=== PATIENT | male | born 1970 | race Caucasian/White ===

== ENCOUNTER 2024-02-23 10:19 | Emergency (ER) | payer OTHER ==
[~2024-02-23] VITALS: Ht 193 cm; Wt 122.5 kg
[2024-02-23 11:09] LABS: BASOPHILS ABSOLUTE AUTO 0.03 K/mm3 (0.00-0.23); BASOPHILS PERCENT AUTO 0 % (0-2); EOSINOPHILS ABSOLUTE AUTO 0.11 K/mm3 (0.00-0.68); EOSINOPHILS PERCENT AUTO 1 % (0-6); Hematocrit 53.8 % (37.0-53.0); Hemoglobin 18.3 g/dL (13.5-17.5); IMMATURE GRAN ABSOLUTE AUTO 0.02 K/mm3 (0.00-0.10); IMMATURE GRAN PERCENT AUTO 0 % (0-1); LYMPHOCYTES ABSOLUTE AUTO 2.03 K/mm3 (0.84-5.20); LYMPHOCYTES PERCENT AUTO 22 % (21-46); MONOCYTES ABSOLUTE AUTO 0.36 K/mm3 (0.16-1.47); MONOCYTES PERCENT AUTO 4 % (4-13); Mean Corpuscular HGB 30.7 pg (26.0-34.0); Mean Corpuscular Volume 90 fL (80-100); Mean Platelet Volume 10.3 fL (9.1-12.4); NEUTROPHILS ABSOLUTE AUTO 6.57 K/mm3 (1.96-9.15); NEUTROPHILS PERCENT AUTO 72 % (41-73); Platelet Count 249 K/mm3 (150-400); RDW Coefficient Variation 12.4 % (11.7-14.2); RDW Standard Deviation 41.1 fL (35.1-46.3); Red Blood Cell Count 5.97 M/mm3 (4.30-5.90); White Blood Cell Count 9.12 K/mm3 (4.00-11.30)
[2024-02-23 11:30] LABS: Albumin/Globulin Ratio 1.3 (0.8-1.8); Bilirubin, Total 0.6 mg/dL (0.1-1.0); Bun/Creatinine Ratio 21.3 (12.0-20.0); Calcium, Blood 8.9 mg/dL (8.5-10.1); Creatinine, Blood 0.89 mg/dL (0.60-1.20); Potassium, Blood 4.3 mmol/L (3.5-5.5)
[2024-02-23] MEDS ORDERED: NS 1,000 ML IV SCH (14:55)
[2024-02-23] MEDS ORDERED: Diltiazem HCl 5 MG / ML 5ML Vial IV ONE (14:55)
[2024-02-23] MEDS ORDERED: Toprol Xl25 MG PO (16:12)
[2024-02-24] MEDS ORDERED: Prinivil10 MG (10:52)
[2024-02-24] MEDS ORDERED: Prinivil10 MG PO (10:53)
== END 2024-02-23 16:30 | disposition home or self-care (01) ==
LOC: ER 10:19
PROVIDERS: Physician Assistant
DX: I48.91 Unspecified atrial fibrillation (principal); I10 Essential (primary) hypertension
CPT/HCPCS: 71046; 80053; 84443; 84484; 85025; 93005; 93010; 96361; 96374; 99285-25; J7030

== ENCOUNTER 2024-02-24 10:40 | Inpatient (IN) | payer OTHER ==
[~2024-02-24] VITALS: Ht 193 cm; Wt 122.7 kg
[2024-02-24] VITALS (9 sets, daily range): BP systolic 90–129; BP diastolic 51–92
[~2024-02-24 10:40] MED LIST: Propofol 10mg/ml 20 ml Vial (Procedural) IV ONE; Toprol Xl25 MG PO
[2024-02-24] MEDS ORDERED: Diltiazem HCl 5 MG / ML 5ML Vial IV ONE ×2 (10:50→12:25)
[2024-02-24] MEDS ORDERED: Prinivil10 MG (10:52)
[2024-02-24] MEDS ORDERED: Prinivil10 MG PO (10:53)
[2024-02-24] MEDS ORDERED: dilTIAZem HCL 125 MG in Dextrose 5% 100 ML IV SCH ×2 (13:25→15:00)
[2024-02-24] MEDS ORDERED: Metoprolol Tartrate 1 MG/ML 5 ML VIAL IV ONE (13:30)
[2024-02-24] MEDS ORDERED: Ondansetron HCl 2 MG / ML 2ML Vial IV PRN (16:20)
[2024-02-24] MEDS ORDERED: Acetaminophen 325 MG TABLET PO PRN (16:25)
[2024-02-24 16:44] LABS: Hematocrit 49.7 % (37.0-53.0); Mean Corpuscular HGB 31.3 pg (26.0-34.0); Mean Corpuscular HGB Conc 34.2 g/dL (31.5-36.5); Mean Corpuscular Volume 91 fL (80-100); Mean Platelet Volume 11.2 fL (9.1-12.4); Platelet Count 200 K/mm3 (150-400); RDW Coefficient Variation 12.7 % (11.7-14.2); Red Blood Cell Count 5.44 M/mm3 (4.30-5.90)
[2024-02-24 16:53] LABS: Albumin, Blood 3.7 g/dL (3.4-5.0); Albumin/Globulin Ratio 1.4 (0.8-1.8); Bun/Creatinine Ratio 24.8 (12.0-20.0); Calcium, Blood 8.7 mg/dL (8.5-10.1); Creatinine, Blood 0.81 mg/dL (0.60-1.20); Globulin, Blood 2.7 g/dL (2.2-4.0); Potassium, Blood 4.2 mmol/L (3.5-5.5); Total Protein, Blood 6.4 g/dL (6.4-8.2)
[2024-02-24] MEDS ORDERED: Metoprolol Tartrate 50 MG Tab PO SCH (17:00)
[2024-02-24] MEDS ORDERED: Nicotine 21 MG PATCH TOP SCH (17:00)
--- NOTE | 2024-02-24 19:02 | NUR ---
PT ARRIVED TO U 14 AT 1850 REPORT RECIEVED FROM MARYELLEN COLLINS. HIS VITAL SIGNS ARE STABLE, TEMP OF 100.3. I GAVE 650MG TYLENOL FOR FEVER. PT STATES HE HAS MILD 1-2/10 CHEST PRESSURE. HE IS ON RA. WHEN I SAT HIM UP IN BED TO GIVE HIM MEDS HE GOT DIZZY. PT IS A&OX4, AND KNOWS TO CALL FOR ASSISTANCE AND NOT GET OOB WITHOUT HELP. LAB CAME AND DAVID A 2ND TROP, RESULTS PENDING. I WENT OVER FIRE IGNITION RISK AND PT STATED HE DID NOT HAVE ANY LIGHTERS. HE IS WEARING A NICOTINE PATCH AT THIS TIME. REPORT WAS GIVEN TO BRITTA COLLINS.
[2024-02-25] VITALS (20 sets, daily range): BP systolic 102–143; BP diastolic 65–102
[2024-02-25 01:09] LABS: Hematocrit 49.8 % (37.0-53.0); Hemoglobin 16.8 g/dL (13.5-17.5); Mean Corpuscular HGB 30.7 pg (26.0-34.0); Mean Corpuscular HGB Conc 33.7 g/dL (31.5-36.5); Mean Corpuscular Volume 91 fL (80-100); Mean Platelet Volume 10.2 fL (9.1-12.4); Platelet Count 173 K/mm3 (150-400); RDW Coefficient Variation 12.6 % (11.7-14.2); RDW Standard Deviation 41.6 fL (35.1-46.3); Red Blood Cell Count 5.48 M/mm3 (4.30-5.90)
[2024-02-25 01:25] LABS: Bun/Creatinine Ratio 24.8 (12.0-20.0); Calcium, Blood 8.7 mg/dL (8.5-10.1); Creatinine, Blood 0.93 mg/dL (0.60-1.20); Potassium, Blood 4.1 mmol/L (3.5-5.5)
--- NOTE | 2024-02-25 06:22 | NUR ---
1915 Assumed care of pt, alex report completed. Shift plan of care reviewed with patient and all questions answered. 2100 Cardizem gtt started for HR 120-140s. Please see Critical Care Flowsheet for full titration details. 0030 Good results with Cardizem gtt, currently at 10mg/hr. HR much more stable and appears to be in a 2:1 atrial flutter. Rate controlled. Trops have remained negative this shift and pt has repeatedly denied chest pain. Please see full assessment for additional details. No further complaints or concerns at this time, will continue to monitor.
[2024-02-25] MEDS ORDERED: Potassium Phosphate Dibasic 30 MM in Dextrose 5% 500 ML IV STA (08:05)
[2024-02-25] MEDS ORDERED: Aspirin 81 MG Chew PO SCH (09:00)
[2024-02-25] MEDS ORDERED: Enoxaparin 40 MG/0.4 ML SYR SC SCH (09:00)
[2024-02-25] MEDS ORDERED: dilTIAZem HCL 120 MG CAP.CD PO SCH (11:30)
--- NOTE | 2024-02-25 11:56 | NUR ---
PT WAS TITRAITED OFF OF HIS DILTIAZEM GTT THIS MORNING AROUND 0830. ON TELE HE HAS BEEN AFLUTTER 70'S-80'S. WHEN THE PT GOT UP TO THE CHAIR FOR LUNCH AND UP TO THE BAHROOM HIS HEART RATE DID START TACHING UP TO 120'S. THE PT DENIES ANY ANGINA/CHEST PRESSURE. HE HAS NOT HAD ANY DIZZINESS OR SOB TODAY. DR. ARVIZU STOPPED BY AND STARTED THE PT ON CARDIZEM CD 120MG DAILY IN ADDITION TO THE 50MG METOPROLOL XL. WE ARE WAITING ON ECHO RESULTS AT THIS TIME TO SEE IF THE PT COULD POSSIBLY D/C TODAY PER DR. ARVIZU. SEE NOTES FOR ANY UPDATES.
--- NOTE | 2024-02-25 12:20 | NUR ---
WHILE UP IN THE CHAIR THE PT'S HEART STARTED TO SUSTAIN IN THE 130'S. HE STARTED HAVING COLD SWEATS. I HAD HIM GET BACK TO BED AND HIS COLD SWEATS STOPPED AND HR CAME BACK DOWN TO 90'S-110'S. OTHER VITALS REMAINED STABLE.
--- NOTE | 2024-02-25 15:56 | NUR ---
DR. ARVIZU CALLED AND WANTS ME TO GIVE THE PT'S 2100 DOSE OF METOPROLOL NOW INSTEAD OF TONIGHT. SHE WOULD LIKE ME TO WAIT A LITTLE AND THEN WALK THE PT AROUND THE UNIT TO SEE HOW HIS HEART IS DOING. SHE WOULD LIKE A CALL. PLAN IS THAT THE PT WILL RESUME METOPROLOL AND CARDIZEM TOGETHER IN THE MORNING.
[2024-02-25] MEDS ORDERED: Metoprolol Succinate 50 MG TABCR PO SCH (16:00)
--- NOTE | 2024-02-25 17:10 | NUR ---
SHIFT SUMMARY PT REMAINS A&OX4, CALLING APPROPRIATELY, AND MAKING HIS NEEDS KNOWN. THE PT HAS BEEN OFF CARDIZEM SINCE ABOUT 0830ISH THIS MORNING. WITH ANY ACTIVITY THE PT WAS TACHING UP W/ HR >130. HE SUSTAINS TACHY WHEN HE IS NOT LAYING DOWN IN BED. WHEN THE PTS HR IS TACHY HE SAYS HE FEELS WEIRD AND HAS COLD SWEATS . IN ASSESSMENT IT DID SHOW THE PT TO HAVE COLD SWEATS W/ TACHYCARDIA, LUH MENDOZA MADE AWARE.. DR. ARVIZU STARTED HIM ON CARDIZEM AND METOPROLOL EXTENDED RELEASE. I WALKED THE PT THIS EVENING ABOUT 45 MINUTES AFTER HE RECEIVED THE METOPROLOL EXTENDED RELEASE AND HE STARTED TO FEEL DIZZY ABOUT 100 FEET. HIS HEART RATE WAS SUSTAINING IN THE [address] ARVIZU CALLED AT THIS TIME AND SAID WE ARE GOING TO KEEP THE PT OVERNIGHT. HR COMING BACK DOWN AFTER GETTING BACK TO THE ROOM AND RESTING. SEE NOTES FOR ANY UPDATES.
[2024-02-25] MEDS ORDERED: dilTIAZem HCL 30 MG TAB PO PRN (18:30)
[2024-02-26] VITALS (7 sets, daily range): BP systolic 111–140; BP diastolic 81–104
--- NOTE | 2024-02-26 06:08 | NUR ---
1915 Assumed care of pt, bedside report completed. Shift plan of care reviewed [facility] pt, all questions answered. 2029 Pt dangle at edge of bed to eat HS snack. Immediately HR to 140s with reports of mild dizziness. Dizziness is less than when ambulating on shift prior per pt report. Pt requests to remain at edge of bed to eat, pt aware of how to keep safe and if symptoms advance to swing legs back into bed. Pt agrees with plan of care. Gave PRN dose of Cardizem for parameters of HR >110. Will continue to monitor. HR below 100 rest of shift due to staying in bed. Will report to day shift RN results of attempted activity. Pt somewhat discourage about percieved lack of progress. Therapautic listening employed, along with goal setting and expectation review. Please see full assessment for additional details. No further complaints or concerns at this time, will continue to monitor.
--- NOTE | 2024-02-26 07:55 | NUR ---
UPDATE/AM ASSESSMENT: PT ALERT AND ORIENTED, ABLE TO FOLLOW COMMANDS AND MAKE NEEDS KNOWN. BP STABLE. HR AFLUTTER 140'S, PT SYMPTOMATIC. PT DIAPHORETIC/NAUSEOUS. COMPLAINING 4/10 CHEST PAIN. VSS. AM MEDS GIVEN. EKG BEING OBTAINED AT THIS TIME.
[2024-02-26] MEDS ORDERED: dilTIAZem HCL 60 MG CAP.SR PO ONE (16:00)
--- NOTE | 2024-02-26 16:08 | NUR ---
SHIFT SUMMARY: PT ALERT AND ORIENTED X4, ABLE TO FOLLOW COMMANDS AND MAKE NEEDS KNOWN. STRENGTH EQUAL BILATERALLY. BP STABLE. HR AFIB 90'S-140'S THIS SHIFT. MD UPDATED. DILT RESTARTED AT 10MG/HR, RESPONDED WELL. CURRENTLY @5MG/HR. CURRENTLY DENIES CP/PRESSURE. PULSES STRONG AND EQUAL THROUGHOUT. AFEBRILE. SPO2 >98% ON ROOM AIR. RESPIRATIONS EVEN AND UNLABORED AT REST. PULSES STRONG AND EQUAL THROUGHOUT. ABD SOFT, NON TENDER, BOWEL SOUNDS +. PT IND IN ROOM. BED IN LOW, CALL LIGHT IN REACH, WILL REPORT TO ONCOMING RN.
--- NOTE | 2024-02-26 22:40 | NUR ---
ASSUMPTION OF CARE THIS RN ASSUMED CARE OF PT AT 1900, REPORT FROM WEI COLLINS. PT RESTING IN BED AT TIME OF REPORT. VSS. PT DENIES CP/PRESSURE, SOB, DIZZINESS, PALPIATIONS AT REST. PT DOES REPORT THAT WITH ACTIVITY HE IS DIZZY, FEELS PALPITATIONS, AND "GETS COLD SWEATS". PT DENIES ANY SYMPTOMS AT THIS TIME; AFIB/FLUTTER WITH HR IN 70'S WITH CARDIZEM GTT INFUSING AT 5 MLS/HR. BP STABLE. PT ENCOURAGED TO USE URINAL AT BEDSIDE AND TO CALL WHEN NEEDING TO GET UP. PT A&O X4, CALM AND COOPERATIVE WITH CARE. PT ABLE TO REPOSITION INDEPENDENTLY. PT DENIES ISSUES OR CONCERNS GI/. CALL LIGHT IN REACH. PT DENIES OTHER NEEDS AT THIS TIME
[2024-02-27] VITALS (16 sets, daily range): BP systolic 102–133; BP diastolic 74–99
[2024-02-27 05:20] LABS: BASOPHILS ABSOLUTE AUTO 0.03 K/mm3 (0.00-0.23); BASOPHILS PERCENT AUTO 0 % (0-2); EOSINOPHILS ABSOLUTE AUTO 0.19 K/mm3 (0.00-0.68); EOSINOPHILS PERCENT AUTO 2 % (0-6); Hematocrit 52.3 % (37.0-53.0); Hemoglobin 17.8 g/dL (13.5-17.5); IMMATURE GRAN ABSOLUTE AUTO 0.02 K/mm3 (0.00-0.10); IMMATURE GRAN PERCENT AUTO 0 % (0-1); LYMPHOCYTES ABSOLUTE AUTO 2.19 K/mm3 (0.84-5.20); LYMPHOCYTES PERCENT AUTO 27 % (21-46); MONOCYTES ABSOLUTE AUTO 0.42 K/mm3 (0.16-1.47); MONOCYTES PERCENT AUTO 5 % (4-13); Mean Corpuscular HGB 30.6 pg (26.0-34.0); Mean Corpuscular Volume 90 fL (80-100); Mean Platelet Volume 10.1 fL (9.1-12.4); NEUTROPHILS ABSOLUTE AUTO 5.32 K/mm3 (1.96-9.15); NEUTROPHILS PERCENT AUTO 65 % (41-73); Platelet Count 191 K/mm3 (150-400); RDW Coefficient Variation 12.5 % (11.7-14.2); Red Blood Cell Count 5.82 M/mm3 (4.30-5.90); White Blood Cell Count 8.17 K/mm3 (4.00-11.30)
--- NOTE | 2024-02-27 06:05 | NUR ---
SHIFT SUMMARY PT REMAINS A&O X4. NO ACUTE EVENTS OVERNIGHT. PT DENIES ANY EVENTS OF CP/PRESSURE, SOB, DIZZINESS, OR "COLD SWEATS. VSS; SBP 102 - 120'S, AFIB/AFLUTTER WITH RATE IN 70 - 80S, INCREASES TO 100 - 1 TEENS WITH ACTIVITY. PT RESTED MOST OF THE SHIFT. REMAINS ON RA, SPO2 92 - 97%. SLEEP OXIMETRY COMPLETED. PT CONTINUES TO USE URINAL INDEPENDENTLY. CARDIZEM INFUSING AT 5MLS/HR. CALL LIGHT IN REACH, WILL UPDATE ONCOMING RN
[2024-02-27 06:15] LABS: Albumin, Blood 3.5 g/dL (3.4-5.0); Anion Gap 9 mmol/L (3-11); Blood Urea Nitrogen 23 mg/dL (8-24); Bun/Creatinine Ratio 28.2 (12.0-20.0); CO2, Blood 25 mmol/L (21-32); Calcium, Blood 8.8 mg/dL (8.5-10.1); Chloride, Blood 110 mmol/L (98-108); Creatinine, Blood 0.82 mg/dL (0.60-1.20); Glomerular Filtration Rate 106 (60-); Glucose, Blood 109 mg/dL (70-99); Magnesium, Blood 2.2 mg/dL (1.6-2.4); Phosphorus, Blood 2.9 mg/dL (2.5-4.9); Potassium, Blood 4.2 mmol/L (3.5-5.5); Sodium, Blood 140 mmol/L (136-145)
[2024-02-27] MEDS ORDERED: dilTIAZem HCL 240 MG CAP.CD PO SCH ×2 (10:00→11:00)
[2024-02-27] MEDS ORDERED: Diltiazem HCl 180 MG Cap.CD PO SCH (10:00)
--- NOTE | 2024-02-27 11:24 | NUR ---
AM SUMMARY PATIENT SAT UP TO EAT BREAKFAST, REPORTED FEELING REALLY DIZZY SITTING UP AND CHEST PRESSURE BUT NO PAIN WHEN HE ELEVATES. HRR DID NOT CHANGE WHEN CHANGE OF POSITION OCCURED. NO REPORT OF CP, SWEATING, PAIN ANYWHERE ELSE. RAY WAS AT BESIDE AROUND 0948 AND HAS VERBALLY CHANGED CARDIZEM PO TO HIGHER DOSE FROM 180 TO 240, NURSE SUNDAY GAVE. WE D/C'D CARDIZEM GTT AND GAVE ORAL CARDIZEM AN HOUR AFTER STOPPING GTT PER SARAH VERBAL REQUEST. DOCTOR STATED TO PT THAT HE WANTS TO CONTROL PULSE, MAKE CHANGES TO MEDS AND ORDER A STRESS TEST THAT WILL HAPPEN TODAY. HE IS CURRENTLY NPO FOR STRESS TEST. SBP IS AROUND 120-130 AND DBP IS 80-90'S. SPO2 >95 ON RA. CALL LIGHT IN REACH, WILL CONTINUE TO MONITOR.
[2024-02-27] MEDS ORDERED: Regadenoson 0.4 MG/5 ML SYRINGE ONE (13:04)
[2024-02-27] MEDS ORDERED: dilTIAZem HCL 120 MG CAP.CD PO ONE (15:30)
[2024-02-27] MEDS ORDERED: Metoprolol Tartrate 1 MG/ML 5 ML VIAL IV PRN (16:35)
[2024-02-27] MEDS ORDERED: LORazepam 2 MG/ML 1ML Injection IV ONE (16:35)
[2024-02-27] MEDS ORDERED: Metoprolol Tartrate 1 MG/ML 5 ML VIAL IV ONE (16:35)
--- NOTE | 2024-02-27 18:25 | NUR ---
SHIFT SUMMARY AT 1350 PT HAD STRESS TEST AND IMAGING DONE. PT REPORTED REALLY BAD HEADACHE SINCE HAVING STRESS TEST, MANAGED WITH CAFFEINE AND TYLENOL. 1500 PTS HRR ELEVATED TO >140'S W IMELDA AND DR. NICOLE ORDERED 5MG IV PUSH X3 5 MINUTES APART, INTERVENTION WAS UNSUCCESSFUL WITH RATE CONTROL. DR. BELL ORDERED ATIVAN TO GO WITH IT. PT REPORTED CHEST PRESSURE, EKG WAS ORDERED AND EVALUATED BY DR BELL. PT IS STILL REPORTING FEELING DIZZY WHEN SITTING UP IN BED AND DIAPHORETIC. RAY WAS AT BEDSIDE AROUND 1800 TO DISCUSS CONSIDERATION OF CARDIOVERSION TOMORROW IF HE DOES NOT CONVERT TO NSR ON HIS OWN THROUGHOUT NIGHT. SIGNATURE FOR CONSENT WAS OBTAINED BY PT AND WITNESSED BY NURSE SAWYER. DR. BELL WILL BE ADJUSTING MEDICATIONS AND WANTED US TO WATCH FOR THAT. SPECIFICALLY THE CARDIZEM AND METOPROLOL WILL BE CHANGED. WE ARE ALSO AWAITING STRESS TEST RESULTS, DR. BELL WOULD LIKE THE PT TO BE PUT ON ANTICOAGULANT PRIOR TO CONVERSION BUT WANTS THE RESULTS FIRST. BP WITHIN NORMAL LIMITS, HRR IS HIGH OF >140. CALL LIGHT IN REACH, WILL REPORT TO ONCOMING RN.
[2024-02-27 20:32] LABS: Anti-Xa UFH, PHA Monitoring <0.10 IU/mL; International Normalized Ratio 0.97; Prothrombin Time Results 10.4 Sec (9.7-11.5)
[2024-02-27] MEDS ORDERED: Dose Adjust by Pharmacy XX STA (20:41)
[2024-02-27] MEDS ORDERED: Heparin Sodium,Porcine/0.5 NS 500 ML IV SCH (20:45)
[2024-02-27] MEDS ORDERED: Heparin Sodium 5000 Units/ML 1ML MDV IV ONE (20:45)
[2024-02-27] MEDS ORDERED: Metoprolol Succinate 50 MG TABCR PO SCH ×2 (21:00)
--- NOTE | 2024-02-27 22:05 | NUR ---
ASSUMPTION OF CARE THIS RN ASSUMED CARE OF PT AT 1900, REPORT FROM SUNDAY RN AND IP BODY DESIGNER. PT LYING FLAT IN BED, FRIEND AT BEDSIDE VISITING. PT DENIES CP/PRESSURE, DIZZINESS, SOB, SWEATING, N/V AT REST. PT DID REPORT DURING THE DAY, HE DID HAVE A FEW SYMPTOMATIC EPISODES BUT SINCE HAS NOT. VSS; AFLUTTER WITH RATE IN 80 - 100'S, REMAINS ON RA. PT DENIES ISSUES GI/. PT IS USING URINAL INDEPENDENTLY. PT HAS NOT AMBULATED THIS SHIFT YET. HEPARIN STARTED PER PHARMACY. CALL LIGHT IN REACH AND PT ABLE TO MAKE NEEDS KNOWN.
[2024-02-28] VITALS (16 sets, daily range): BP systolic 110–148; BP diastolic 76–110
[2024-02-28 04:29] LABS: Hemoglobin 17.8 g/dL (13.5-17.5); Mean Platelet Volume 10.2 fL (9.1-12.4); Platelet Count 196 K/mm3 (150-400)
[2024-02-28] MEDS ORDERED: Clarify Drug Order XX ONE (05:10)
--- NOTE | 2024-02-28 06:16 | NUR ---
SHIFT SUMMARY PT REMAINS A&O X4. NO ACUTE EVENTS OVERNIGHT, NO CHANGES FROM ASSUMPTION OF CARE NOTE. VSS; SBP 128 - 148, AFLUTTER WITH RATE IN 80 - 100'S, AFEBRILE, ON RA WITH SPO2 GREATER THAN 95%. PT DID NOT GET UP FROM BED, HOWEVER HE DID ELEVATE HOB. PT DID NOT REPORT ANY EVENTS OF CP/PRESSURE, DIZZINESS OR SWEATING THIS SHIFT. NO REPORTED TELE EVENTS. PT USING URINAL INDEPENDENTLY IN BED. HEPARIN PER EMAR. PT NPO SINCE MIDNIGHT FOR PROCEDURE TODAY. CALL LIGHT IN REACH, WILL UPDATE ONCOMING RN
--- NOTE | 2024-02-28 10:09 | NUR ---
AM SUMMARY PT REPORTS THAT HE SLEPT WELL. HE HAD COMPLAINTS OF DIZZINESS STILL UPON SITTING UPRIGHT IN BED DURING HEAD TO TOE. HE DOESN'T FEEL CHEST PRESSURE, PAIN OR SOB BUT HE ALSO STATED THAT HE HAS NOT MOVED AROUND MUCH THIS MORNING. PT WILL BE GOING FOR 2ND PART TO STRESS TEST THIS MORNING AT 1030 AND THEN GETTING SET UP WITH [facility] FOR CARDIOVERSION WITH DR. BELL. PT IS REMAINING NPO UNTIL ALL PROCEDURES HAVE BEEN COMPLETED TODAY. VITAL SIGNS ARE WITHIN NORMAL LIMITS AND RATE HAS BEEN CONTROLLED BUT THE PT IS STILL IN AFLUTTER. PT PREFERS TO BE LAYING MORE FLAT IN BED BECAUSE ANY UPRIGHT SITTING MAKES HIM FEEL DIZZY. CALL LIGHT IS WITHIN REACH, WILL CONTINUE TO MONITOR.
[2024-02-28] MEDS ORDERED: Dose Adjust by Pharmacy XX STA ×2 (10:42→16:18)
[2024-02-28] MEDS ORDERED: Benzocaine Oral Spray 0.5ML UD ONE (11:07)
[2024-02-28] MEDS ORDERED: Lactated Ringer's 1,000 ML IV ONE (17:49)
--- NOTE | 2024-02-28 18:12 | NUR ---
ABDON PROCEDURE SEE ANESTHESIA FLOWSHEET FOR MEDICATION ADMINISTRATION. CARDIOVERTED WITH DR. BELL AT 1804. SR 73 ON THE MONITOR. BP STABLE. PT ALERT/ORIENTED TO SELF, PLACE, EVENT. CONVERSING WITH STAFF. SWITCHING FROM NRB TO NC. NO SIGN OF DISTRESS.
--- NOTE | 2024-02-28 18:29 | NUR ---
SHIFT SUMMARY PT HAD SECOND PART TO STRESS TEST AND IT WAS CLEAR PER DR. BELL OF ANY BLOCKAGES. PT WAS ON CONTINUOUS HEPARIN GTT UNTIL CARDIOVERSION. HE REPORTED THAT HE WAS FEELING GOOD AT THE END OF THE DAY AND THAT SITTING UP HEADING TO STRESS TESTS HE DID NOT HAVE ANY DIZZINESS OR CHEST PRESSURE. DR. BELL ARRIVED AT BEDSIDE AROUND 1745 TO BEGIN CARDIOVERSION. PT WAS SEDATED WITH 170 MG PROPOFOL PER ANESTHESI[address]IST. DR. BELL DID ABDON PRIOR TO CARDIOVERTING, ABDON WAS CLEAR. DR. BELL CHARGED TO 200 J AND SHOCKED, CONVERTING PT TO NSR AT 1804. PT WOKE UP FROM ANESTHESIA WITHIN 10 MINUTES POST PROCEDURE. PER DR. BELL HE NEEDS TO BE PUT BACK ON CONTINUOUS HEP GTT STARTING AT 1999. IF EVERYTHING GOES EXPECTED THROUGH THE NIGHT, HE WILL BE D/C TOMORROW SOMETIME. WE ARE REINTRODUCING FLUIDS FIRST TO SEE HOW PT TOLERATES, THEN MOVING TO FOOD. PT IS CURRENTLY ON 4 LITERS OF O2 POST PROCEDURE, WILL TITRATE DOWN AND SEE HOW IT IS TOLERATED. PT REPORTS THAT HE DOESN'T HAVE A HEADACHE ANYMORE AND THAT HE WANTS TO EAT. VITALS SIGNS WITHIN NORMAL LIMITS, SPO2 >95 ON 4L NASAL CANNULA. CALL LIGHT IN REACH AND FRIEND AT BEDSIDE, WILL REPORT TO ONCOMING DENNIS
[2024-02-28] MEDS ORDERED: Lactated Ringer's 1,000 ML IV SCH (19:10)
[2024-02-29] VITALS: BP 123/80
[2024-02-29 01:00] VITALS: BP 104/60
[2024-02-29 03:38] LABS: Hematocrit 48.7 % (37.0-53.0); Hemoglobin 16.7 g/dL (13.5-17.5); Mean Platelet Volume 10.2 fL (9.1-12.4); Platelet Count 194 K/mm3 (150-400)
[2024-02-29 04:00] VITALS: BP 125/85
[2024-02-29] MEDS ORDERED: Dose Adjust by Pharmacy XX STA (04:02)
[2024-02-29] MEDS ORDERED: Heparin Sodium 5000 Units/ML 1ML MDV IV ONE (04:05)
--- NOTE | 2024-02-29 06:12 | NUR ---
SHIFT SUMMARY PT REMAINS A&O X4. COOPERATIVE WITH CARE. VSS; NSR WITH RATE IN 80'S, SBP 1 TEENS - 125, AFEBRILE, ON RA WITH SPO2 GREATER 92-96%. NO ACUTE EVENTS OVERNIGHT. PT USING URINAL INDEPENDENTLY AT BEDSIDE. HEPARIN RESTARTED PER MD ORDERS. PT TOLERATING DIET AND PO INTAKE. PT CURRENTLY RESTING, CALL LIGHT IN REACH. WILL UPDATE ONCOMING RN
[2024-02-29 07:59] VITALS: BP 131/89
[2024-02-29] MEDS ORDERED: Rivaroxaban 10 MG Tab PO SCH (09:00)
[2024-02-29 12:09] VITALS: BP 130/76
[2024-02-29] MEDS ORDERED: METO100ER PO (13:03)
[2024-02-29] MEDS ORDERED: Acetaminophen650 M1 PO (13:03)
[2024-02-29] MEDS ORDERED: NICO21TP TOP (13:04)
[2024-02-29] MEDS ORDERED: XARELTO20 MG PO (13:04)
--- NOTE | 2024-02-29 13:50 | NUR ---
DISCHARGE: PT HAS BEEN CLEARED FOR DISCHARGE HOME. ALL IV ACCESS HAS BEEN DC'd WNL. DC PAPERWORK AND INSTRUCTIONS HAVE BEEN PROVIDED, PT V/U. PT DRESSES SELF, AMBULATES FROM UNIT W/OUT DIFFICULTY.
== END 2024-02-29 13:47 | disposition home or self-care (01) | DRG 310 ==
LOC: ER 10:40 → PCU 10:41 → ER 16:20 → PCU 16:20
PROVIDERS: Internal Medicine; Internal Medicine Cardiovascular Disease; ADMIT Internal Medicine
PROC: 5A2204Z Restoration of Cardiac Rhythm, Single (ICD-10-PCS; principal; 2024-02-28)
PROC: B24BZZ4 Ultrasonography of Heart with Aorta, Transesophageal (ICD-10-PCS; 2024-02-28)
DX: I48.92 Unspecified atrial flutter (principal); I48.19 Other persistent atrial fibrillation; I10 Essential (primary) hypertension; F17.210 Nicotine dependence, cigarettes, uncomplicated
CPT/HCPCS: 36415; 71046; 78452; 80048; 80053; 80069; 82947; 83735; 84100; 84443; 84484; 85014; 85018; 85025; 85027; 85049; 85520; 85610; 85730; 93005; 93010; 93017; 93306; 93312; 93325; 94762; 96361; 96365; 96366; 96372; 96374; 96375; 96376; 99285-25; A9270; A9500; G0378; J1644; J1650; J2060; J2704; J2785; J7030; J7060; J7120

== ENCOUNTER 2024-10-25 07:34 | Emergency (ER) | payer OTHER ==
[~2024-10-25] VITALS: Ht 195.6 cm; Wt 136.1 kg
[~2024-10-25 07:34] MED LIST changes: +Acetaminophen650 M1 PO; +METO100ER PO; +NICO21TP TOP; +Prinivil10 MG; +Prinivil10 MG PO; -Propofol 10mg/ml 20 ml Vial (Procedural) IV ONE; +XARELTO20 MG PO
[2024-10-25 08:12] LABS: BASOPHILS ABSOLUTE AUTO 0.01 K/mm3 (0.00-0.23); BASOPHILS PERCENT AUTO 0 % (0-2); EOSINOPHILS PERCENT AUTO 0 % (0-6); Hematocrit 48.8 % (37.0-53.0); Hemoglobin 17.6 g/dL (13.5-17.5); IMMATURE GRAN ABSOLUTE AUTO 0.02 K/mm3 (0.00-0.10); IMMATURE GRAN PERCENT AUTO 0 % (0-1); LYMPHOCYTES ABSOLUTE AUTO 1.43 K/mm3 (0.84-5.20); LYMPHOCYTES PERCENT AUTO 27 % (21-46); MONOCYTES PERCENT AUTO 6 % (4-13); Mean Corpuscular HGB 31.3 pg (26.0-34.0); Mean Corpuscular HGB Conc 36.1 g/dL (31.5-36.5); Mean Corpuscular Volume 87 fL (80-100); Mean Platelet Volume 10.1 fL (9.1-12.4); NEUTROPHILS ABSOLUTE AUTO 3.57 K/mm3 (1.96-9.15); NEUTROPHILS PERCENT AUTO 67 % (41-73); Platelet Count 103 K/mm3 (150-400); RDW Coefficient Variation 12.6 % (11.7-14.2); RDW Standard Deviation 39.8 fL (35.1-46.3); Red Blood Cell Count 5.62 M/mm3 (4.30-5.90); White Blood Cell Count 5.33 K/mm3 (4.00-11.30)
[2024-10-25 08:33] LABS: Albumin, Blood 3.3 g/dL (3.4-5.0); Albumin/Globulin Ratio 0.9 (0.8-1.8); Bilirubin, Total 1.2 mg/dL (0.1-1.0); Bun/Creatinine Ratio 15.6 (12.0-20.0); Calcium, Blood 8.3 mg/dL (8.5-10.1); Creatinine, Blood 0.77 mg/dL (0.60-1.20); Globulin, Blood 3.6 g/dL (2.2-4.0); Potassium, Blood 3.6 mmol/L (3.5-5.5); Total Protein, Blood 6.9 g/dL (6.4-8.2)
[2024-10-25] MEDS ORDERED: NS 1,000 ML IV SCH (09:20)
[2024-10-25] MEDS ORDERED: Ondansetron HCl 2 MG / ML 2ML Vial IV ONE (09:20)
[2024-10-25] MEDS ORDERED: Metoclopramide HCl 5MG / ML 2ML Vial IV ONE (10:10)
[2024-10-25] MEDS ORDERED: Prochlorperazine Edisylate 10 mg Vial IV ONE (11:10)
[2024-10-25] MEDS ORDERED: Mag Hydrox/AL Hydrox/Simeth 30 ML UDC PO ONE (11:15)
[2024-10-25] MEDS ORDERED: PROC5 PO (12:17)
== END 2024-10-25 12:46 | disposition home or self-care (01) ==
LOC: ER 07:34
PROVIDERS: Student in an Organized Health Care Education/Training Program
DX: R00.2 Palpitations (principal); B34.9 Viral infection, unspecified; I10 Essential (primary) hypertension; Z79.899 Other long term (current) drug therapy
CPT/HCPCS: 71046; 80053; 83690; 84484; 85025; 93005; 93010; 96361; 96374; 96375; 99285-25; A9270; J0780; J2405; J2765; J7030